=== PATIENT | male | born 1985 | race African-American/Black ===

== ENCOUNTER 2018-12-22 13:09 | Emergency (ER) | payer OTHER, MEDICAID ==
[~2018-12-22] VITALS: Ht 182.9 cm; Wt 80.0 kg
[2018-12-22] MEDS ORDERED: SODIUM CHLORIDE 0.9% 1,000 ML IV ONE ×2 (14:36→16:46)
[2018-12-22 14:44] LABS: BASOPHILS % 0.6 % (0.0-2.0); CHLORIDE 105 mEq/L (98-107); EOSINOPHILS % 1.9 % (0.0-5.0); HEMATOCRIT. 42.6 % (42.0-52.0); HEMOGLOBIN. 14.4 g/dL (14.0-18.0); LYMPHOCYTES % 37.8 % (20.0-50.0); MEAN CORPUSCULAR HEMOGLOBIN 30.2 pg (28.0-32.0); MEAN CORPUSCULAR VOLUME 89.3 fL (80.0-94.0); MEAN PLATELET VOLUME 7.7 fl (7.4-10.4); MONOCYTES % 11.9 % (2.0-8.0); NEUTROPHILS % 47.8 % (40.0-76.0); PLATELET 283 x1000/uL (130-400); RED BLOOD CELL COUNT 4.77 mill/uL (4.7-6.1); RED CELL DISTRIBUTION WIDTH 13.4 % (11.6-14.6)
[2018-12-22] MEDS ORDERED: NALOXONE HCL 0.4 MG/ML 1ML VIAL IV ONE (14:45)
[2018-12-22 14:48] LABS: ETHANOL BLOOD < 10 mg/dL
[2018-12-22 14:54] LABS: INR 1.1; PROTHROMBIN TIME 10.7 sec (9.1-11.1)
[2018-12-22 20:21] VITALS: BP 119/64
== END 2018-12-22 20:59 | disposition home or self-care (01) ==
LOC: ER 13:09
DX: G93.40 Encephalopathy, unspecified (principal); E86.0 Dehydration
CPT/HCPCS: 36415; 70450; 80053; 80320; 85025; 85610; 96361; 96374; 99284; J2310; J7030; Z7610; 80305; G0480